=== PATIENT | male | born 1960 | race Caucasian/White ===

== ENCOUNTER 2022-12-09 06:53 | Inpatient (IN) ==
[2022-12-09] MEDS ORDERED: IOPAMIDOL 100 ML BOTTLE IV ONE (06:54)
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
[2022-12-09] MEDS ORDERED: 0.9 % SODIUM CHLORIDE 250 ML IV ONE (07:20)
[2022-12-09 07:28] LABS: POC Calcium, Ionized 1.13 (1.16-1.32); POC Creatinine 5.3 (0.6-1.2); POC Potassium 5.2 (3.3-5.1)
[2022-12-09 08:10] LABS: Basophils # (Auto) 0.05 K/mcL (0.00-0.30); Basophils % (Auto) 0.3 % (0.0-2.0); Eosinophils # (Auto) 0.14 K/mcL (0.00-0.70); Hematocrit 25.3 % (40.1-51.0); Hemoglobin 7.9 g/dL (13.7-17.5); Lymphocytes # (Auto) 0.77 K/mcL (1.50-4.80); Lymphocytes % (Auto) 5.3 % (15.5-49.0); Mean Cell Volume 94.4 fL (80.0-100.0); Mean Corpuscular HGB Conc 31.2 g/dL (31.0-36.0); Mean Platelet Volume 9.4 fL (8.8-12.5); Monocytes # (Auto) 0.96 K/mcL (0.10-0.90); Monocytes % (Auto) 6.6 % (1.0-12.0); Neutrophils % (Auto) 86.3 % (38.0-78.0); Platelet Count 178 K/mcL (140-440); RBC 2.68 M/mcL (4.63-6.08); Red Cell Distribution Width 15.5 % (11.5-14.5); WBC 14.5 K/mcL (4.5-11.0)
[2022-12-09 08:24] LABS: ALT/SGPT 6 U/L (<40); AST/SGOT 9 U/L (<40); Albumin 3.2 gm/dL (3.2-5.2); Alkaline Phosphatase 137 U/L (39-117); Bilirubin,Direct 0.2 mg/dL (<0.3); Bilirubin,Total 0.7 mg/dL (0.1-1.0); Globulin 4.1 gm/dL (2.2-3.7)
[2022-12-09] MEDS ORDERED: cefTRIAXone 1 GM VIAL IV ONE (08:43)
[2022-12-09] MEDS ORDERED: morphine 10 MG/ML VIAL IV ONE (09:46)
[2022-12-09] MEDS ORDERED: HYDROmorphone 0.5 MG/0.5 ML SYRINGE IV ONE (10:00)
[2022-12-09] MEDS ORDERED: LORazepam 2 MG/ML VIAL IV ONE (10:00)
[2022-12-09] MEDS ORDERED: 0.9 % SODIUM CHLORIDE 500 ML IV ONE ×2 (10:52→12:13)
[2022-12-09 12:09] LABS: Appearance,Urine TURBID (Clear); Bilirubin,Urine Negative (Negative); Color,Urine YELLOW; Culture Indicated,Urine yes; Glucose,Urine (UA) Negative (Negative); Ketones,Urine Negative (Negative); Leukocyte Esterase,Urine 250 /uL (Negative); Nitrate,Urine Negative (Negative); Protein,Urine 100 mg/dL (Negative); Specific Gravity,Urine 1.012 (1.000-1.035); Urine RBC 50 /hpf (0-3); Urine Squamous Epithelial Cell 0 /hpf (0-4); Urine WBC > 182 /hpf (0-4); Urobilinogen,Urine Negative
[2022-12-09] MEDS ORDERED: ACETAMINOPHEN 325 MG TABLET PO ONE (12:13)
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
[2022-12-09] MEDS ORDERED: IPRATROPIUM/ALBUTEROL 3 ML AMPUL.NEB NEB PRN (14:04)
[2022-12-09] MEDS ORDERED: 0.9 % SODIUM CHLORIDE 1,000 ML IV SCH (14:04)
[2022-12-09] MEDS ORDERED: morphine 4 MG/ML VIAL IV PRN (14:04)
[2022-12-09] MEDS ORDERED: LACTULOSE 20 GM/30 ML ORAL.SOL PO PRN (14:04)
[2022-12-09] MEDS ORDERED: BISACODYL 10 MG SUPP.RECT PR PRN (14:04)
[2022-12-09] MEDS ORDERED: POLYETHYLENE GLYCOL 3350 17 GM PACKET PO PRN (14:04)
[2022-12-09] MEDS ORDERED: ONDANSETRON 4 MG/2 ML VIAL IV PRN (14:04)
[2022-12-09] MEDS ORDERED: DEXTROSE 50% 50 ML VIAL IV PRN (14:04)
[2022-12-09] MEDS ORDERED: MINERAL OIL 1 DOSE ENEMA PR PRN (14:04)
[2022-12-09] MEDS ORDERED: DEXTROSE 31 GM ORAL.SUSP PO PRN (14:04)
[2022-12-09] MEDS ORDERED: cefTRIAXone 1 GM in DEXTROSE 5% IN WATER 50 ML IV SCH (14:04)
[2022-12-09] MEDS ORDERED: traZODone HCL 50 MG TABLET PO PRN (14:04)
[2022-12-09] MEDS ORDERED: MAGNESIUM HYDROXIDE 30 ML ORAL.SUSP PO PRN (14:04)
[2022-12-09] MEDS ORDERED: METOPROLOL TARTRATE 5 MG/5 ML VIAL IV PRN (14:47)
[2022-12-09] MEDS: 0.9 % SODIUM CHLORIDE 10 ML SYRINGE IV SCH ×2 (15:02→20:42)
--- NOTE | 2022-12-09 15:19 | Cat Scan Report ---
CLINICAL INFORMATION: Left lower quadrant pain COMPARISON: Abdomen and pelvic CT 06/15/2022. TECHNIQUE: Following enteric contrast, 80 cc of Isovue-370 were injected intravenously, and 60 seconds later, 0.625 mm helical slices were obtained from the mid heart through the subtrochanteric regions. Following reconstruction, 2.5 mm sagittal, coronal and axial reformatted images were processed and reviewed at bone, lung and soft tissue windows. Five minutes later, 0.625 mm helical slices were obtained from the mid heart through the kidneys and viewed at soft tissue windows.The exam was performed using radiation dose optimization techniques including, but not limited to, automated exposure control, adjustment of the mA and/or kV according to patient size and use of iterative reconstruction technique. FINDINGS: The lung bases show small chronic left and tiny chronic right pleural effusion with mild thickening of both the visceral and parietal pleura. There are three pleural-based nodules in the posterior left lower lobe: 3.6 cm, 3.2 cm and 2.5 cm. There are most likely fibrotic or inflammatory. No change from prior exam. Visualized heart is grossly normal. Abdominal images show the gallbladder is moderately distended but no wall thickening. Few tiny stones are seen in the dependent gallbladder neck. Common bile duct normal caliber at 6 mm. The liver is normal in size configuration and attenuation without focal lesion. The pancreas, both adrenal glands, and aorta are normal. lobulation seen in both kidneys but no focal renal lesions. The spleen is mildly enlarged with a vertical dimension of 16 cm There is no free air, free fluid or adenopathy Pelvic images show prostate is moderately enlarged with a transverse dimension 6.1 cm. It is unchanged from 2017. Urinary bladder is moderately distended and there is now moderate diffuse wall thickening compatible cholecystitis. Small amount of gas seen within the anterior wall of the dome region and mild inflammation in the adjacent fat. Few sigmoid diverticula appreciated, but no evidence of diverticulitis. The remaining colon is normal. Retrocecal appendix is unremarkable. There is moderate stool throughout the colon and rectum which are normal caliber. Stomach and small bowel are grossly normal. Bone windows ORIF left hip fracture which is anatomically aligned IMPRESSION: 1. Moderate urinary bladder distention with diffuse wall thickening and inflammation in the adjacent fat compatible cholecystitis. This is a new finding.. 2. Sigmoid diverticulosis, but no evidence of diverticulitis 3. Moderate prostate enlargement. Urinary bladder distention suggests chronic bladder outlet narrowing related to prostatism 4. Small chronic left and tiny chronic right pleural effusions both stable. Three well-circumscribed ovoid pleural-based masses in the posterior left lower lobe range up to 3.6 centimeters are also stable. Findings are compatible benign granulomas or fibrosis. 5. Mild splenomegaly-stable. 6.Moderate colonic stool particularly the rectosigmoid region 7.Cholelithiasis 8. Subacute oblique basicervical fracture left hip is transfixed by gamma nail with anatomic alignment. Subtotal osseous union Interpreted and Authenticated by: Jameson Horn 12/09/22
--- NOTE | 2022-12-09 15:19 | XRay Report ---
CLINICAL INFORMATION: Sepsis COMPARISON: 11/17/2022 TECHNIQUE: Portable FINDINGS: The heart size, mediastinum and pulmonary vessels are unremarkable. Mild fibrosis left mid lung and base is unchanged. No new pulmonary abnormalities. Small chronic left pleural effusion noted. The bones and soft tissues are within normal limits. IMPRESSION: No acute disease. Stable left basilar fibrosis Interpreted and Authenticated by: Jameson Horn 12/09/22
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
[2022-12-09] MEDS: INSULIN LISPRO 1 UNIT/0.01 ML UNIT SQ SCH ×2 (16:34→20:40)
[2022-12-09] MEDS ORDERED: LORazepam 0.5 MG TABLET PO PRN (17:54)
[2022-12-09] MEDS: METOPROLOL TARTRATE 50 MG TABLET PO SCH (20:38)
[2022-12-09] MEDS: DOCUSATE SODIUM 100 MG CAPSULE PO SCH (20:38)
[2022-12-09] MEDS: ATORVASTATIN 40 MG TABLET PO SCH (20:38)
[2022-12-09] MEDS: APIXABAN 5 MG TABLET PO SCH (20:38)
[2022-12-09] MEDS: AMITRIPTYLINE 25 MG TABLET PO SCH (20:39)
[2022-12-09] MEDS: SENNOSIDES 1 TABLET PO SCH (20:39)
[2022-12-09] MEDS: MIRTAZAPINE 15 MG TABLET PO SCH (20:39)
[2022-12-09] MEDS: INSULIN GLARGINE, HUMAN 1 UNIT/0.01 ML SQ SCH (20:40)
[2022-12-10] MEDS: 0.9 % SODIUM CHLORIDE 10 ML SYRINGE IV SCH ×3 (06:05→21:43)
[2022-12-10] MEDS: INSULIN LISPRO 1 UNIT/0.01 ML UNIT SQ SCH ×4 (07:33→21:42)
[2022-12-10] MEDS: MISOPROSTOL 100 MCG TABLET PO SCH ×2 (07:33→16:53)
[2022-12-10] MEDS: PANTOPRAZOLE 40 MG TABLET PO SCH ×2 (07:34→16:53)
[2022-12-10] MEDS: CALCIUM ACETATE 667 MG TABLET PO SCH ×3 (07:34→16:53)
[2022-12-10 08:26] LABS: Basophils # (Auto) 0.04 K/mcL (0.00-0.30); Basophils % (Auto) 0.3 % (0.0-2.0); Eosinophils # (Auto) 0.08 K/mcL (0.00-0.70); Eosinophils % (Auto) 0.5 % (0.0-7.0); Hematocrit 21.2 % (40.1-51.0); Hemoglobin 6.5 g/dL (13.7-17.5); Lymphocytes # (Auto) 0.95 K/mcL (1.50-4.80); Lymphocytes % (Auto) 6.4 % (15.5-49.0); Mean Cell Volume 96.4 fL (80.0-100.0); Mean Corpuscular HGB Conc 30.7 g/dL (31.0-36.0); Mean Platelet Volume 9.7 fL (8.8-12.5); Monocytes # (Auto) 1.43 K/mcL (0.10-0.90); Monocytes % (Auto) 9.7 % (1.0-12.0); Neutrophils % (Auto) 82.2 % (38.0-78.0); Platelet Count 136 K/mcL (140-440); Red Cell Distribution Width 15.8 % (11.5-14.5); WBC 14.8 K/mcL (4.5-11.0)
[2022-12-10 08:41] LABS: Phosphorous 4.6 mg/dL (2.5-4.5)
[2022-12-10 08:55] LABS: ALT/SGPT < 5 U/L (<40); AST/SGOT 9 U/L (<40); Albumin 2.4 gm/dL (3.2-5.2); Albumin/Globulin Ratio 0.7 (1.0-2.3); Alkaline Phosphatase 121 U/L (39-117); Bilirubin,Total 0.4 mg/dL (0.1-1.0); Blood Urea Nitrogen 46 mg/dL (8-23); Calcium 8.3 mg/dL (8.6-10.4); Carbon Dioxide 23 mmol/L (22-30); Chloride 94 mmol/L (96-108); Globulin 3.6 gm/dL (2.2-3.7); Glomerular Filtration Rate 12; Glucose 213 mg/dL (70-105)
[2022-12-10] MEDS: VITAMIN D3 125 MCG TABLET PO SCH (08:59)
[2022-12-10] MEDS: ASCORBIC ACID 500 MG TABLET PO SCH (08:59)
[2022-12-10] MEDS: METOPROLOL TARTRATE 50 MG TABLET PO SCH ×2 (08:59→21:40)
[2022-12-10] MEDS: cefTRIAXone 1 GM VIAL IV SCH (08:59)
[2022-12-10] MEDS: APIXABAN 5 MG TABLET PO SCH ×2 (08:59→21:39)
[2022-12-10] MEDS ORDERED: NALOXEGOL 12.5 MG PO SCH (09:00)
[2022-12-10] MEDS: DOCUSATE SODIUM 100 MG CAPSULE PO SCH ×2 (09:00→21:39)
--- NOTE | 2022-12-10 09:01 | Nephrology Progress Note ---
SUBJECTIVE Subjective Patient information: Note initiated : 12/10/22 at 8:59 am Patient: Fernando Damon 62 y/o M admitted on 12/09/22 for abdominal pain. Chief Complaint: Weakness Pertinent ROS: Weakness Constitutional Vitals: Vital Signs Temp Pulse Resp BP Pulse Ox O2 Del Method 97.8 F 79 16 132/68 95 Room Air 12/10/22 06:53 12/10/22 06:53 12/10/22 06:53 12/10/22 06:53 12/10/22 06:53 12/10/22 06:53 Period Temp Pulse Resp BP Sys/Goldman Pulse Ox O2 Del Method O2 Flow Rate Last 24 Hr 97.4 F-102.6 F 79-129 16-29 98-167/52-119 94-100 Room Air-Room Air Intake and Output 12/09/22 12/10/22 12/10/22 19:59 03:59 11:59 Intake Total 500 550 Output Total 2 Balance 498 550 Weight 215 lb 11.2 oz Intake & Output: Intake & Output 12/09/22 12/10/22 12/10/22 19:59 03:59 11:59 Intake Total 500 550 Output Total 2 Balance 498 550 Weight 215 lb 11.2 oz Intake: IV 500 Sodium Chloride 0.9% 500 ml @ 500 Wide Open IV BOLUS ONE Rx#: [id number] Oral 550 Output: # of times incontinent of urine 2 Other: # Voids 2 General appearance: cooperative and no acute distress Head Head exam: Present normal inspection Eye Eye exam: Present normal appearance ENT ENT exam: Present mucous membranes moist Respiratory Respiratory exam: Absent respiratory distress Cardiovascular Cardiovascular exam: Present normal rate and rhythm GI/Abdominal GI/Abdominal exam: Present soft; Absent tenderness Extremities Exam Extremities exam: Absent joint swelling or pedal edema Neurological Exam Neurological exam: Present alert and oriented X3 Psychiatric Psychiatric exam: Present normal affect and normal mood Skin Skin exam: Present warm; Absent rash A/P Assessment and plan (1) ESRD on hemodialysis: Assessment and plan: Fernando Damon is a 62-year-old male with end stage renal disease on hemodialysis, hypertension, diabetes mellitus type 2, right central venous stenosis on chronic anticoagulation, recent left hip fracture s/p surgery and left BKA, sent to [facility] ED from [facility] on 12/09/22 for constipation (1 week) and smelly urine. In ED, his workup was significant for tachycardia (120s), tachypnea (20s), Tmax (37.9), leukocytosis (14.5), lactic acid (0.6), procalcitonin level (0.72). He was admitted for sepsis from acute cystitis. I saw the patient in room 116. His was in the room. He gets chronic hemodialysis in [place] on Saturday, Saturday, Saturday and followed by Dr. Clark. Last hemodialysis was on Saturday. Nephrology consultation was requested for end stage renal disease. End stage renal disease on hemodialysis. Right arm AV fistula. Right central venous stenosis s/p stenting on chronic anticoagulation with Apixaban. Chronic anemia due to ESRD, requiring blood transfusion recently. Hb 7.9 on 12/09/22. No obvious fluid overload. Hyponatremia with ESRD, moderate (129), managed by hemodialysis. Hyperkalemia with ESRD, moderate (5.1), managed by hemodialysis. Recommendations: Hemodialysis today for 3 hours with 2K and transfusion of 2 units of PRBC fo Hb 6.5. The patient seen and evaluated during hemodialysis at 11:12. Tolerating well. IVF discontinued. Continue hemodialysis on Saturday, Saturday, Saturday. Status: Chronic Time Spent With Patient Time: Total time spent is greater than 50% in coordination of care (as documented) at patient's floor/unit and/or counseling patient:
[2022-12-10] MEDS ORDERED: 0.9 % SODIUM CHLORIDE 250 ML IV SCH (09:15)
--- NOTE | 2022-12-10 11:11 | Internal Med Progress Note ---
SUBJECTIVE Subjective Patient information: Note initiated : 12/10/22 at 11:02 am Service Date, if different from initiated Date: [] Patient: Fernando Damon 62 y/o M admitted on 12/09/22 for abdominal pain. Chief Complaint: [] Interval history: Mr. Damon is a 62 year old M history of end-stage renal disease on hemodialysis Saturday, type 2 diabetes mellitus, hyperlipidemia, congestive heart failure, GERD, recent left hip fracture s/p surgery and left BKA 3 and 2 weeks ago, respectively, presenting with constipations and bad urinary smells. Patient's was being discharged from outside hospital in [place] to inpatient rehab a week ago for continued postoperative care. He was noted by the correction staff that he has not have a bowel movement over the past week and his urine was reported to be smelling bad. Patient's currently denies having any complaints still. He denies any abdominal distention or abdominal pain. He denies any urinary symptoms. He denies any fever chills or diaphoresis. He denies any change in his appetite or general body weakness. Vital signs at ED presentation significant for tachycardia and tachypnea heart rate and rate of breathing in the 120s and upper 20s, respectively. He also spiked low-grade fever Tmax as high as 37.9. Labs significant for leukocytosis with WBC 14.5. Lactic acid 0.6. Procalcitonin level 0.72. Urinalysis suggesting the presence of urinary tract infections. CT abdomen pelvis pending. Admission request is called for urinary tract infections with clinical sepsis. 12/10: Afebrile overnight. WBC 14.8. Blood and urine cultures no growth to date. H/H 6.5/21.2. No bloody stool/black stool/hematemesis. Patient is complaining of general body weakness. He is complaining of unable to p.o. poop. He denies fever chills or diaphoresis. He denies chest pain palpitations or lightheadedness. Hemodialysis today as per nephrology. Transfuse 2 unit PRBC today and will recheck H&H this evening. Continue antibiotics with Rocephin while monitoring culture results. Colace, senna, milk of magnesium, MiraLAX, lactulose, Dulcolax suppository, Fleet enema or as needed for constipation. Constitutional Vitals: Vital Signs Temp Pulse Resp BP Pulse Ox O2 Del Method 36.4 C 80 16 151/79 95 Room Air 12/10/22 10:40 12/10/22 10:40 12/10/22 06:53 12/10/22 10:40 12/10/22 06:53 12/10/22 06:53 Period Temp Pulse Resp BP Sys/Goldman Pulse Ox O2 Del Method O2 Flow Rate Last 24 Hr 36.3 C-39.2 C 79-129 16-29 98-167/54-119 94-100 Room Air-Room Air Intake and Output 12/09/22 12/10/22 12/10/22 19:59 03:59 11:59 Intake Total 500 550 Output Total 2 Balance 498 550 Weight 97.84 kg Intake & Output: Intake & Output 12/09/22 12/10/22 12/10/22 19:59 03:59 11:59 Intake Total 500 550 Output Total 2 Balance 498 550 Weight 97.84 kg Intake: IV 500 Sodium Chloride 0.9% 500 ml @ 500 Wide Open IV BOLUS ONE Rx#: [id number] Oral 550 Output: # of times incontinent of urine 2 Other: # Voids 2 Head Head exam: Present atraumatic and normal inspection Eye Eye exam: Present normal appearance ENT ENT exam: Present mucous membranes moist, normal exam and normal external ear exam Neck Neck exam: Present normal inspection Respiratory Respiratory exam: Present normal respiratory exam Cardiovascular Cardiovascular exam: Present normal rate and rhythm GI/Abdominal GI/Abdominal exam: Present normal bowel sounds Extremities Exam Extremities exam: Present tenderness; Absent full ROM or normal inspection Additional comments: Palpable thrill right arm Left BKA Left lateral hip covered by surgical dressing Back Exam Back exam: Present normal inspection Neurological Exam Neurological exam: Present alert and oriented X3 Skin Skin exam: Present intact and warm OBJ DATA Labs 12/10/22 05:44 12/10/22 05:44 Labs: Abnormal Lab Results 12/10/22 12/10/22 12/09/22 05:44 05:44 10:40 WBC 14.8 H RBC 2.20 L Hgb 6.5 L* Hct 21.2 L POC Hct MCHC 30.7 L RDW 15.8 H Plt Count 136 L Immature Gran % (Auto) 0.9 H Neut % (Auto) 82.2 H Lymph % (Auto) 6.4 L Lymph # (Auto) 0.95 L [place] # (Auto) 1.43 H Immature Gran # 0.14 H Absolute Neutrophils 12.14 H POC VBG pH POC VBG pCO2 at Temp POC VBG pO2 POC Venous O2 Sat POC VBG Base Excess POC Sodium Sodium 129 L POC Potassium POC Chloride Chloride 94 L POC BUN BUN 46 H Creatinine 4.9 H POC Creatinine Glucose 213 H POC Glucose Calcium 8.3 L POC WB Ioniz Calcium Phosphorus 4.6 H Alkaline Phosphatase 121 H Albumin 2.4 L Globulin Albumin/Globulin Ratio 0.7 L Procalcitonin Urine Appearance Turbid A Urine Protein 100 A Ur Leukocyte Esterase 250 A Urine RBC 50 H Urine WBC > 182 H 12/09/22 12/09/22 12/09/22 09:17 09:15 07:24 WBC RBC Hgb Hct POC Hct 24.0 L MCHC RDW Plt Count Immature Gran % (Auto) Neut % (Auto) Lymph % (Auto) Lymph # (Auto) [place] # (Auto) Immature Gran # Absolute Neutrophils POC VBG pH 7.44 H POC VBG pCO2 at Temp 40.9 L POC VBG pO2 16 L POC Venous O2 Sat 23.0 L POC VBG Base Excess 4.0 H* POC Sodium 129 L Sodium POC Potassium 5.2 H POC Chloride 93 L Chloride POC BUN 34 H BUN Creatinine POC Creatinine 5.3 H* Glucose POC Glucose 117 H Calcium POC WB Ioniz Calcium 1.13 L Phosphorus Alkaline Phosphatase Albumin Globulin Albumin/Globulin Ratio Procalcitonin 0.72 H Urine Appearance Urine Protein Ur Leukocyte Esterase Urine RBC Urine WBC 12/09/22 12/09/22 07:22 07:22 WBC 14.5 H RBC 2.68 L Hgb 7.9 L Hct 25.3 L POC Hct MCHC RDW 15.5 H Plt Count Immature Gran % (Auto) Neut % (Auto) 86.3 H Lymph % (Auto) 5.3 L Lymph # (Auto) 0.77 L [place] # (Auto) 0.96 H Immature Gran # 0.07 H Absolute Neutrophils 12.48 H POC VBG pH POC VBG pCO2 at Temp POC VBG pO2 POC Venous O2 Sat POC VBG Base Excess POC Sodium Sodium POC Potassium POC Chloride Chloride POC BUN BUN Creatinine POC Creatinine Glucose POC Glucose Calcium POC WB Ioniz Calcium Phosphorus Alkaline Phosphatase 137 H Albumin Globulin 4.1 H Albumin/Globulin Ratio Procalcitonin Urine Appearance Urine Protein Ur Leukocyte Esterase Urine RBC Urine WBC Meds: Medications Albuterol/Ipratropium (Ipratropium/Albuterol 3 Ml Ampul.Neb) 3 ml NEB Q4HRT PRN PRN Reason: Wheezing Amitriptyline HCl (Amitriptyline 25 Mg Tablet) 150 mg PO [facility] Last Admin: 12/09/22 20:39 Dose: 150 mg Apixaban (Apixaban 5 Mg Tablet) 5 mg PO BID [facility] Last Admin: 12/10/22 08:59 Dose: 5 mg Ascorbic Acid (Ascorbic Acid 500 Mg Tablet) 500 mg PO DAILY [facility] Last Admin: 12/10/22 08:59 Dose: 500 mg Atorvastatin Calcium (Atorvastatin 40 Mg Tablet) 40 mg PO QHS [facility] Last Admin: 12/09/22 20:38 Dose: 40 mg Bisacodyl (Bisacodyl 10 Mg Supp.Rect) 10 mg OK DAILYP PRN PRN Reason: Constipation Calcium Acetate (Calcium Acetate 667 Mg Tablet) 1,334 mg PO TIDCC [facility] Last Admin: 12/10/22 07:34 Dose: 1,334 mg Ceftriaxone Sodium (Ceftriaxone 1 Gm Vial) 1 gm IV Q24H [facility] Last Admin: 12/10/22 08:59 Dose: 1 gm Dextrose (Dextrose 50% 50 Ml Vial) 0 ml IV UD PRN PRN Reason: Per Sliding Scale Diagnostic Test (Pha) (Accu-Chek 1 Each Strip) 1 each FS [facility] Last Admin: 12/10/22 07:34 Dose: 1 each Docusate Sodium (Docusate Sodium 100 Mg Capsule) 100 mg PO BID [facility] Last Admin: 12/10/22 09:00 Dose: 100 mg Glucose (Dextrose 31 Gm Oral.Susp) 15 gm PO PRN PRN PRN Reason: Hypoglycemia Sodium Chloride (Sodium Chloride 0.9%) 250 mls @ 20 mls/hr IV .[id number] [facility] Stop: 12/10/22 21:44 Insulin Glargine (Insulin Glargine, Human 1 Unit/0.01 Ml) 30 unit SQ [facility] Last Admin: 12/09/22 20:40 Dose: 30 units Insulin Human Lispro (Insulin Lispro 1 Unit/0.01 Ml Unit) 0 unit SQ [facility]; Protocol Last Admin: 12/10/22 07:33 Dose: 3 units Lactulose (Lactulose 20 Gm/30 Ml Oral.Kenyatta) 10 gm PO DAILYP PRN PRN Reason: Constipation Lorazepam (Lorazepam 0.5 Mg Tablet) 0.5 mg PO QDAY PRN PRN Reason: anxiety Magnesium Hydroxide (Magnesium Hydroxide 30 Ml Oral.Susp) 30 ml PO BIDP PRN PRN Reason: Constipation Metoprolol Tartrate (Metoprolol Tartrate 5 Mg/5 Ml Vial) 5 mg IV Q1HP PRN PRN Reason: Tachyarrhythmias Metoprolol Tartrate (Metoprolol Tartrate 50 Mg Tablet) 50 mg PO BID [facility] Last Admin: 12/10/22 08:59 Dose: 50 mg Mineral Oil (Mineral Oil 1 Dose Enema) 1 dose OK DAILYP PRN PRN Reason: Constipation Mirtazapine (Mirtazapine 15 Mg Tablet) 30 mg PO [facility] Last Admin: 12/09/22 20:39 Dose: 30 mg Misoprostol (Misoprostol 100 Mcg Tablet) 200 mcg PO BIDCC [facility] Last Admin: 12/10/22 07:33 Dose: 200 mcg Morphine Sulfate (Morphine 4 Mg/Ml Vial) 4 mg IV Q4HP PRN; Protocol PRN Reason: Per Pain Protocol Ondansetron HCl (Ondansetron 4 Mg/2 Ml Vial) 4 mg IV Q6HP PRN PRN Reason: Nausea And Vomiting Pantoprazole Sodium (Pantoprazole 40 Mg Tablet) 40 mg PO BIDAC [facility] Last Admin: 12/10/22 07:34 Dose: 40 mg Linaclotide 290 Mcg (Capsule) 1 dose PO DAILYP PRN PRN Reason: Constipation Naloxegol [Movantik] (12.5 Mg Tablet) 1 dose PO QAM [facility] Last Admin: 12/10/22 09:00 Dose: Not Given Polyethylene Glycol (Polyethylene Glycol 3350 17 Gm Packet) 17 gm PO DAILYP PRN PRN Reason: Constipation Senna (Sennosides 1 Tablet) 2 tab PO HS [facility] Last Admin: 12/09/22 20:39 Dose: 2 tab Sodium Chloride (0.9 % Sodium Chloride 10 Ml Syringe) 10 ml IV Q8 [facility] Last Admin: 12/10/22 06:05 Dose: Not Given Trazodone HCl (Trazodone Hcl 50 Mg Tablet) 25 mg PO HSP PRN PRN Reason: Insomnia Vitamin D (Vitamin D3 125 Mcg Tablet) 125 [facility] [place] [place] Last Admin: 12/10/22 08:59 Dose: 125 mcg A/P Assessment and plan (1) Anemia in ESRD (end-stage renal disease): Status: Chronic (2) Closed femur fracture: Status: Acute (3) Diabetic foot ulcer: Status: Acute (4) ESRD on hemodialysis: Status: Chronic (5) Clinical sepsis: Status: Acute (6) UTI (urinary tract infection): Status: Acute (7) GERD (gastroesophageal reflux disease): Status: Chronic (8) Type 2 diabetes mellitus with diabetic polyneuropathy: Status: Chronic Qualifiers: Diabetes mellitus [employer] insulin use: with [place] [facility] use Qualified Code(s): E11.42 - Type 2 diabetes mellitus with diabetic polyneuropathy; Z79.4 - detention (current) use of insulin (9) CHF (congestive heart failure): Status: Chronic (10) Mixed hyperlipidemia: Status: Chronic (11) Constipation: Status: Acute Narrative A/P Narrative: Assessment and Plans: 1. UTI with clinical sepsis: Inpatient med surg telemetry Serial lactic acid 0.6 Procalcitonin level 0.72 Blood culture, no growth to date Urine culture, no growth to date cbc w/ auto diff in the morning to trend WBC Rocephin Physical therapy 2. Constipation: CT abdomen pelvis-->moderate colonic stool particularly the rectosigmoid region Colace Senna Miralax Milk of Magnesia Lactulose Dulcolax supp. Fleet enema 3. ESRD on HD MWF with associated anemia: Consult Dr. Cooley for dialysis needs Transfuse 2 unit pRBC Repeat H/H this evening to trend 4. T2DM: HgA1c 8.3 Hold oral hypoglycemics Lantus 30 unit HS Insulin Lispro SSI AC HS Accu Check AC HS Hypoglycemia protocol Diabetic diet 5. Hyperlipidemia: Continue statin therapy 6. Congestive heart failure: Metoprolol tartrate Hold diuretics, gentle IV fluid therapy for clinical sepsis instead 7. Recent left hip fracture s/p surgery and diabetic foot infection s/p BKA recently: [place] Morphine Physical therapy 8. GERD: Continue PPI from home regimen GI ppx: Continue PPI from home regimen DVT ppx: Eliquis Code status: Full Prognosis: guarded Disposition: inpatient med surg tele; PT; SNF resident Time Spent With Patient Time: Total time spent is greater than 50% in coordination of care (as documented) at patient's floor/unit and/or counseling patient: Subsequent: Total time with patient: 35 - 49 minutes QUALITY Stroke Symptom Onset Unknown: No VTE Deep Vein Thrombosis/Pulmonary Embolism Present on Admission: No
[2022-12-10] MEDS ORDERED: oxyCODONE HCL 5 MG TABLET PO PRN (11:19)
[2022-12-10] MEDS ORDERED: MAGNESIUM HYDROXIDE 30 ML ORAL.SUSP PO PRN (11:19)
[2022-12-10] MEDS ORDERED: MIDODRINE 5 MG TABLET PO PRN (11:23)
[2022-12-10] MEDS ORDERED: ACETAMINOPHEN 325 MG TABLET PO PRN (11:24)
[2022-12-10] MEDS: LACTOBACILLUS 1 CAPSULE PO SCH ×2 (15:02→21:38)
[2022-12-10] MEDS: CAPSAICIN 0.025% CREAM.TOP 60GM TOPICAL SCH ×2 (15:02→21:44)
--- NOTE | 2022-12-10 15:45 | EKG ---
[facility] Test Date: 2022-12-09 Pat Name: Fernando Damon Department: ICU Room: 116 Gender: Male Clerk Supervisor: : [id number] Requested By: Venkatesh Bradshaw Order Number: [id number] Reading MD: Yrn Asher Measurements Intervals [place] Rate: 116 P: 33 WA: 156 QRS: 38 QRSD: 103 T: 195 QT: 316 QTc: 440 Interpretive Statements Sinus tachycardia Nonspecific repol abnormality, diffuse leads Electronically Signed On 12-10-2022 15:45:15 PST by Yrn Asher /store/M0/[id number]/[email or web address]/[id number].pdf
[2022-12-10 18:45] LABS: Hemoglobin 10.6 g/dL (13.7-17.5)
[2022-12-10] MEDS: MIRTAZAPINE 15 MG TABLET PO SCH (21:39)
[2022-12-10] MEDS: TAMSULOSIN 0.4 MG CAPSULE PO SCH (21:39)
[2022-12-10] MEDS: SENNOSIDES 1 TABLET PO SCH (21:40)
[2022-12-10] MEDS: ATORVASTATIN 40 MG TABLET PO SCH (21:40)
[2022-12-10] MEDS: AMITRIPTYLINE 25 MG TABLET PO SCH (21:40)
[2022-12-10] MEDS: INSULIN GLARGINE, HUMAN 1 UNIT/0.01 ML SQ SCH (21:44)
[2022-12-11] MEDS: 0.9 % SODIUM CHLORIDE 10 ML SYRINGE IV SCH (05:59)
[2022-12-11 07:00] LABS: Phosphorous 3.1 mg/dL (2.5-4.5)
[2022-12-11 07:01] LABS: Basophils # (Auto) 0.04 K/mcL (0.00-0.30); Basophils % (Auto) 0.4 % (0.0-2.0); Eosinophils # (Auto) 0.22 K/mcL (0.00-0.70); Hematocrit 28.4 % (40.1-51.0); Lymphocytes # (Auto) 0.97 K/mcL (1.50-4.80); Lymphocytes % (Auto) 8.7 % (15.5-49.0); Mean Cell Volume 94.4 fL (80.0-100.0); Mean Corpuscular HGB Conc 31.7 g/dL (31.0-36.0); Mean Platelet Volume 9.7 fL (8.8-12.5); Monocytes # (Auto) 1.04 K/mcL (0.10-0.90); Monocytes % (Auto) 9.3 % (1.0-12.0); Neutrophils % (Auto) 78.8 % (38.0-78.0); Platelet Count 159 K/mcL (140-440); RBC 3.01 M/mcL (4.63-6.08); Red Cell Distribution Width 14.9 % (11.5-14.5); WBC 11.2 K/mcL (4.5-11.0)
[2022-12-11 07:05] LABS: ALT/SGPT 8 U/L (<40); AST/SGOT 11 U/L (<40); Albumin 2.5 gm/dL (3.2-5.2); Albumin/Globulin Ratio 0.7 (1.0-2.3); Alkaline Phosphatase 182 U/L (39-117); Bilirubin,Total 0.5 mg/dL (0.1-1.0); Blood Urea Nitrogen 24 mg/dL (8-23); Calcium 8.2 mg/dL (8.6-10.4); Carbon Dioxide 27 mmol/L (22-30); Chloride 93 mmol/L (96-108); Globulin 3.8 gm/dL (2.2-3.7); Glomerular Filtration Rate 17; Glucose 138 mg/dL (70-105)
[2022-12-11] MEDS: INSULIN LISPRO 1 UNIT/0.01 ML UNIT SQ SCH ×2 (07:16→11:14)
[2022-12-11] MEDS: PANTOPRAZOLE 40 MG TABLET PO SCH (07:20)
[2022-12-11] MEDS: MISOPROSTOL 100 MCG TABLET PO SCH (07:20)
[2022-12-11] MEDS: CALCIUM ACETATE 667 MG TABLET PO SCH ×2 (07:20→11:38)
--- NOTE | 2022-12-11 07:30 | Nephrology Progress Note ---
SUBJECTIVE Subjective Patient information: Note initiated : 12/11/22 at 7:28 am Patient: Fernando Damon 62 y/o M admitted on 12/09/22 for abdominal pain. Chief Complaint: Weakness Pertinent ROS: Weakness Constitutional Vitals: Vital Signs Temp Pulse Resp BP Pulse Ox O2 Del Method O2 Flow Rate 98.9 F 85 19 162/67 94 Room Air 0 12/11/22 04:00 12/11/22 06:10 12/11/22 06:10 12/11/22 04:00 12/11/22 06:10 12/11/22 04:00 12/11/22 04:00 Period Temp Pulse Resp BP Sys/Goldman Pulse Ox O2 Del Method O2 Flow Rate Last 24 Hr 97.0 F-99.9 F 72-94 15-20 101-166/55-86 93-98 Room Air-Room Air 0-0 Intake and Output 12/10/22 12/11/22 12/11/22 19:59 03:59 11:59 Intake Total 1871 300 800 Output Total 2900 Balance -1029 300 800 Weight 215 lb 11.2 oz 214 lb Intake & Output: Intake & Output 12/10/22 12/11/22 12/11/22 19:59 03:59 11:59 Intake Total 1871 300 800 Output Total 2900 Balance -1029 300 800 Weight 215 lb 11.2 oz 214 lb Intake: IV 946 Sodium Chloride 0.9% 1,000 ml @ 900 50 mls/hr IV .Q20H JUANITA Rx#: [id number] Sodium Chloride 0.9% 250 ml @ 46 20 mls/hr IV .[id number] JUANITA Rx#: [id number] Oral 600 300 800 Blood Product 325 Output: Urine Catheter Amount 550 Hemodialysis UF 2350 Other: Meal hamburger family brought in Dinner Percent of Meal Consumed 100% 100% Urine Color Dark Yellow Urine Odor Strong # Bowel Movements 0 General appearance: cooperative and no acute distress Head Head exam: Present normal inspection Eye Eye exam: Present normal appearance ENT ENT exam: Present mucous membranes moist Respiratory Respiratory exam: Absent respiratory distress Cardiovascular Cardiovascular exam: Present normal rate and rhythm GI/Abdominal GI/Abdominal exam: Present soft; Absent tenderness Extremities Exam Extremities exam: Absent joint swelling or pedal edema Neurological Exam Neurological exam: Present alert and oriented X3 Psychiatric Psychiatric exam: Present normal affect and normal mood Skin Skin exam: Present warm; Absent rash A/P Assessment and plan (1) ESRD on hemodialysis: Assessment and plan: Fernando Damon is a 62-year-old male with end stage renal disease on hemodialysis, hypertension, diabetes mellitus type 2, right central venous stenosis on chronic anticoagulation, recent left hip fracture s/p surgery and left BKA, sent to [facility] ED from [facility] on 12/09/22 for constipation (1 week) and smelly urine. In ED, his workup was significant for tachycardia (120s), tachypnea ( 20s), Tmax (37.9), leukocytosis (14.5), lactic acid (0.6), procalcitonin level (0.72). He was admitted for sepsis from acute cystitis. I saw the patient in room 116. His was in the room. He gets chronic hemodialysis in [place] on Saturday, Saturday, Saturday and followed by Dr. Clark. Last hemodialysis was on Saturday. Nephrology consultation was requested for end stage renal disease. End stage renal disease on hemodialysis. Right arm AV fistula. Right central venous stenosis s/p stenting on chronic anticoagulation with Apixaban. Progress: Hemodialysis on 12/10/22 for 3 hours with 2K and transfusion of 2 units of PRBC. Chronic anemia due to ESRD s/p 2 units of PRBC on 12/10/22. Hb 9.0 on 12/11/22. No obvious fluid overload. Hyponatremia with ESRD, moderate (131), managed by hemodialysis. Hyperkalemia, resolved. Hypertension, not adequately controlled. Urinary retention, not adequately controlled. Recommendations: Neely catheter placed for urinary retention. He will need to be discharged to [facility] ([facility] in [place]) with Neely and follow up with urology. Hydralazine 10 mg PO QID PRN SBP >160. Continue hemodialysis on Saturday, Saturday, Saturday in [place]. Status: Chronic Time Spent With Patient Time: Total time spent is greater than 50% in coordination of care (as documented) at patient's floor/unit and/or counseling patient:
[2022-12-11] MEDS ORDERED: hydrALAZINE 10 MG TABLET PO PRN (08:31)
[2022-12-11] MEDS: VITAMIN D3 125 MCG TABLET PO SCH (08:37)
[2022-12-11] MEDS: DOCUSATE SODIUM 100 MG CAPSULE PO SCH (08:37)
[2022-12-11] MEDS: LACTOBACILLUS 1 CAPSULE PO SCH (08:37)
[2022-12-11] MEDS: TAMSULOSIN 0.4 MG CAPSULE PO SCH (08:37)
[2022-12-11] MEDS: ASCORBIC ACID 500 MG TABLET PO SCH (08:37)
[2022-12-11] MEDS: APIXABAN 5 MG TABLET PO SCH (08:37)
[2022-12-11] MEDS: METOPROLOL TARTRATE 50 MG TABLET PO SCH (08:38)
[2022-12-11] MEDS: CAPSAICIN 0.025% CREAM.TOP 60GM TOPICAL SCH (08:44)
[2022-12-11] MEDS ORDERED: LIDOCAINE PATCH TOPICAL SCH (09:00)
[2022-12-11] MEDS ORDERED: INSULIN GLARGINE, HUMAN 1 UNIT/0.01 ML SQ SCH (09:00)
[2022-12-11] MEDS: cefTRIAXone 1 GM VIAL IV SCH (09:09)
--- NOTE | 2022-12-11 11:18 | Discharge Summary ---
Discharge Provider Provider IMPORTANT FOLLOW-UP INFORMATION FOR PCP: Patient information: Note initiated : 12/11/22 at 11:11 am Service Date, if different from initiated Date: [] Patient: Fernando Damon 62 y/o M admitted on 12/09/22 for abdominal pain. Chief Complaint: [] Date of admission: 12/09/22 13:45 Discharge date: 12/11/22 Primary care physician: Grace Morillo PA-C Attending physician on admission: Venkatesh Bradshaw Consults: 12/09/22 Consult to Physician [CONS] Stat Comment: Consulting Provider: Venkatesh Bradshaw Reason For Exam: Physician to Consult 12/09/22 14:04 Consult to Physician [CONS] Routine Comment: ESRD on HD Consulting Provider: Shanda Cooley Reason For Exam: Physician to Consult Attending physician on discharge: Venkatesh Bradshaw COURSE Hospital Course Hospital course: Mr. Damon is a 62 year old M history of end-stage renal disease on hemodialysis Saturday, type 2 diabetes mellitus, hyperlipidemia, congestive heart failure, GERD, recent left hip fracture s/p surgery and left BKA 3 and 2 weeks ago, respectively, presenting with constipations and bad urinary smells. Patient's was being discharged from outside hospital in [place] to inpatient rehab a week ago for continued postoperative care. He was noted by the [facility] staff that he has not have a bowel movement over the past week and his urine was reported to be smelling bad. Patient's currently denies having any complaints still. He denies any abdominal distention or abdominal pain. He denies any urinary symptoms. He denies any fever chills or diaphoresis. He denies any change in his appetite or general body weakness. Vital signs at ED presentation significant for tachycardia and tachypnea heart rate and rate of breathing in the 120s and upper 20s, respectively. He also spiked low-grade fever Tmax as high as 37.9. Labs significant for leukocytosis with WBC 14.5. Lactic acid 0.6. Procalcitonin level 0.72. Urinalysis suggesting the presence of urinary tract infections. CT abdomen pelvis pending. Admission request is called for urinary tract infections with clinical sepsis. 12/10: Afebrile overnight. WBC 14.8. Blood and urine cultures no growth to date. H/H 6.5/21.2. No bloody stool/black stool/hematemesis. Patient is complaining of general body weakness. He is complaining of unable to p.o. poop. He denies fever chills or diaphoresis. He denies chest pain palpitations or lightheadedness. Hemodialysis today as per nephrology. Transfuse 2 unit PRBC today and will recheck H&H this evening. Continue antibiotics with Rocephin while monitoring culture results. Colace, senna, milk of magnesium, MiraLAX, lactulose, Dulcolax suppository, Fleet enema or as needed for constipation. 12/11: Discharged back to SNF. Rx sent to pharmacy. Neely catheter left in place, made follow up appointment with urologist. Also follow up with SNF MD. All questions were answered prior to patient being physically discharged. Discharge diagnosis: UTI Time Spent with Patient Time attestation: Total time spent providing and/or coordinating discharge services: Time spent: Greater than 30 minutes EXAM Constitutional Vitals: Temp Pulse Resp BP Pulse Ox O2 Del Method O2 Flow Rate 37.2 C 83 17 145/55 97 Room Air 0 12/11/22 08:01 12/11/22 08:01 12/11/22 08:01 12/11/22 08:01 12/11/22 08:01 12/11/22 08:01 12/11/22 04:00 General appearance: cooperative and no acute distress Head Head exam: Present atraumatic and normocephalic Eye Eye exam: Present EOMI and PERRL ENT ENT exam: Present mucous membranes moist, normal exam and normal external ear exam Neck Neck exam: Present normal inspection; Absent lymphadenopathy, tenderness or thyromegaly Respiratory Respiratory exam: Absent accessory muscle use, respiratory distress or wheezes Cardiovascular Cardiovascular exam: Present normal rate and rhythm; Absent JVD GI/Abdominal GI/Abdominal exam: Present normal bowel sounds and soft; Absent organomegaly or tenderness Rectal Rectal exam: Present deferred Additional comments: Neely catheter in place Extremities Exam Extremities exam: Present full ROM, normal capillary refill and normal inspe ction; Absent tenderness Neurological Exam Neurological exam: Present alert, CN II-XII intact and oriented X3; Absent motor sensory deficit Psychiatric Psychiatric exam: Present normal affect and normal mood; Absent anxious or depressed Skin Skin exam: Present dry and intact Discharge Data Data Completed and Pending Labs on day of discharge: Labs from last 24 hours 12/11/22 12/11/22 12/10/22 05:16 05:16 18:01 WBC 11.2 H RBC 3.01 L Hgb 9.0 L 10.6 L Hct 28.4 L 32.0 L MCV 94.4 MCH 29.9 MCHC 31.7 RDW 14.9 H Plt Count 159 MPV 9.7 Immature Gran % (Auto) 0.8 H Neut % (Auto) 78.8 H Lymph % (Auto) 8.7 L [place] % (Auto) 9.3 Eos % (Auto) 2.0 Baso % (Auto) 0.4 Lymph # (Auto) 0.97 L [place] # (Auto) 1.04 H Eos # (Auto) 0.22 Baso # (Auto) 0.04 Immature Gran # 0.09 H Absolute Neutrophils 8.80 H Sodium 131 L Potassium 3.9 Chloride 93 L Carbon Dioxide 27 Anion Gap 11.0 BUN 24 H Creatinine 3.6 H GFR Calculation 17 Glucose 138 H Calcium 8.2 L Phosphorus 3.1 Magnesium 2.1 Total Bilirubin 0.5 AST 11 ALT 8 Alkaline Phosphatase 182 H Total Protein 6.3 Albumin 2.5 L Globulin 3.8 H Albumin/Globulin Ratio 0.7 L Preliminary micro results at discharge 12/09/22 09:20 Blood Culture - Preliminary Blood 12/09/22 09:15 Blood Culture - Preliminary Blood 12/09/22 10:40 Urine Culture - Preliminary Urine - Neely Gram negative bacillus Discharge Plan Patient/Caregiver Discharge Instructions Prescriptions: New amoxicillin-pot clavulanate [Augmentin] 500-125 mg tablet 1 tab PO BID Qty: 10 0RF Continued pantoprazole 40 mg tablet,delayed release (DR/EC) 40 mg PO BIDAC Qty: 180 1RF mirtazapine 30 mg tablet 30 mg PO QHS Qty: 90 1RF blood sugar diagnostic [True Metrix Glucose Test Strip] Strip 1 strip miscellaneous TID MDD 3 Qty: 100 5RF atorvastatin 40 mg tablet 40 mg PO QHS Qty: 90 3RF Eliquis 5 mg tablet 5 mg PO BID Qty: 180 0RF ascorbic acid (vitamin C) 500 mg capsule 500 mg PO QAM insulin aspart U-100 100 unit/mL solution See Rx Instructions subcut .COMPLEX Rx Instructions: subcut per sliding scale; Max 14 units daily calcium acetate(phosphat bind) 667 mg capsule 1,334 mg PO TID misoprostol 200 MCG tablet 200 mcg PO BID metoprolol tartrate 50 MG tablet 50 mg PO BID linaclotide 290 mcg capsule 290 mcg PO PRN PRN (Reason: Constipation) amitriptyline 150 mg tablet 150 mg PO QHS Movantik 12.5 mg Tablet 12.5 mg PO QAM bumetanide 2 mg tablet 2 mg PO QAM cholecalciferol (vitamin D3) [Vitamin D3] 125 mcg (5,000 unit) tablet 125 mcg PO QAM ondansetron 4 mg tablet,disintegrating 4 mg PO Q6H PRN (Reason: nausea and vomiting) Qty: 20 0RF acetaminophen 325 mg Tablet 650 mg PO Q4H PRN (Reason: Pain) Rx Instructions: Elevated temperature; headache; pain related to chronic pain syndrome Do not exceed 3000mg in 24 hours bisacodyl [Dulcolax (bisacodyl)] 10 mg Suppository 10 mg ID QDAY PRN (Reason: Constipation) Rx Instructions: If no BM after milk of magnesia capsaicin 0.025 % Cream 1 applic TOPICAL TID Rx Instructions: do not wash area for at least 30 min after application Fleet Enema 19-7 gram/118 mL Enema 118 ml ID DAILYP PRN (Reason: Constipation) Rx Instructions: Administer for no BM on shift following dulcolax suppository. Glucagon Emergency Kit (human) 1 mg Recon Soln 1 mg SUBCUT Q15M PRN (Reason: Hypoglycemia) Rx Instructions: until target blood sugar attained. Inject 1mg every 15minutes as needed insulin glargine [Basaglar KwikPen U-100 Insulin] 100 unit/mL (3 mL) Insulin Pen 35 unit SUBCUT QAM Lactobacillus acidoph-L.bulgar [Floranex] 1 million cell Tablet 4 tab PO TID Rx Instructions: Give with meals lidocaine 5 % Adhesive Patch,Medicated 1 patch TOPICAL QDAY Rx Instructions: leave on most painful area for up to 12 hrs midodrine 10 mg Tablet 10 mg PO DAILYP PRN (Reason: Hypotension) Rx Instructions: Take prior to dialysis do not give last dose of day after 6PM or within 4 hrs of bedtime polyethylene glycol 3350 17 gram Powder In Packet 17 g PO TID Rx Instructions: TID for up to 3 days. Mix with 6-8 ounces of fluid of choice magnesium hydroxide [Milk of Magnesia] 400 mg/5 mL Suspension 30 ml PO QDAY PRN (Reason: Constipation) Rx Instructions: For no BM in 3 days tamsulosin 0.4 mg Capsule 0.4 mg PO BID senna-docusate sodium Tablet 1 tab PO BID lorazepam 0.5 mg tablet 0.5 mg PO QDAY PRN (Reason: anxiety) Qty: 10 0RF oxycodone 5 mg Tablet 5 mg PO Q4H PRN (Reason: Pain) Qty: 20 0RF No Action (DME) lancets [TRUEplus Lancets] 30 gauge misc See Rx Instructions .Route Qty: 100 5RF Rx Instructions: Testing up to 3 times daily; E11.42; Insulin-Dependent DM II (DME) blood-glucose meter [True Metrix Glucose Meter] Misc See Rx Instructions .Route Qty: 1 0RF Rx Instructions: Testing up to 3 times daily; E11.42; Insulin-Dependent DM II (DME) BD AutoShield Duo Pen Needle 30 gauge x 3/16" needle See Rx Instructions .Route Qty: 100 5RF Rx Instructions: As directed to inject insulin aspart and glargine (DME) Diabetic Shoes See Rx Instructions .Route .MEDSUPPLY Qty: 1 0RF Rx Instructions: Daily Use for Diabetes Follow Up Plan Follow up with: Grace Morillo PA-C [Primary Care Provider] - Ambrocio Burnett MD [Physician] - Patient Disposition: Xfer SNF Rehab Potential: Good I certify that the patient requires SNF services: Yes Overall status at discharge: patient is progressing back to baseline Discharge Orders: Discharge Order (Routine); Ordered 12/11/22 Ordered By: Venkatehs PECK VTE Deep Vein Thrombosis/Pulmonary Embolism Present on Admission: No
== END 2022-12-11 14:18 | DRG 871 ==
LOC: ED 06:53 → ICU 13:45
PROVIDERS: ADMIT Internal Medicine; ATTEND Internal Medicine